=== PATIENT | female | born 1980 | race Caucasian/White ===

== ENCOUNTER 2019-04-07 09:08 | Emergency (ER) | payer BC ==
[2019-04-07 09:20] VITALS: BMI 24.0
--- NOTE | 2019-04-07 09:52 | PDOC ---
Attending Attestation - Resident Resident Name: NoelherminiaPilarMonique - ED Attending Attestation I have performed the following: I have examined & evaluated the patient, The case was reviewed & discussed with the resident, I agree w/resident's findings & plan, Exceptions are as noted - HPI HPI: 39 yo F history ADHD, anxiety, SLE, chronic pain, migraines presents with low back pain. She is 7 . She was seen last night at an outside ER due to cp, found to have 4.1 cm AAA. Currently denies cp, SOB, leg swelling. She states she has had difficulty walking due to her back pain. Denies weakness, numbness. - Physicial Exam PE: GENERAL: Awake, alert, and fully oriented, in no acute distress. Well-appearing , appears uncomfortable. HEAD: No signs of trauma EYES: PERRLA, EOMI, sclera anicteric, conjunctiva clear ENT: Auricles normal inspection, hearing grossly normal, nares patent, oropharynx clear without exudates. Moist mucosa NECK: Normal ROM, supple, no lymphadenopathy, JVD, or masses LUNGS: Breath sounds equal, clear to auscultation bilaterally. No wheezes, and no crackles HEART: Regular rate and rhythm, normal S1 and S2, no murmurs, rubs or gallops ABDOMEN: Soft, nontender, normoactive bowel sounds. No guarding, no rebound. No masses EXTREMITIES: Normal range of motion, no edema. No clubbing or cyanosis. No cords, erythema, or tenderness NEUROLOGICAL: Cranial nerves II through XII grossly intact. Normal speech, normal gait. Motor and sensation intact SKIN: Warm, dry, normal turgor, no rashes or lesions noted. Small puncture wound (healing) overlying the spine, no erythema, no surrounding induration, no point tenderness. - Medical Decision Making Pt with severe low back pain, no known trauma. She had an epidural with her delivery, however, there are no signs of spinal epidural abscess. Pt is well- appearing, but uncomfortable. Will obtain labs, l-spine XR. DC home if she improves with pain meds. i-STOP Reference #: [id number]
--- NOTE | 2019-04-07 10:34 | PDOC ---
History of Present Illness - General Chief Complaint: Chest Pain Stated Complaint: SENT PCP FOR CHEST PAIN Time Seen by Provider: 04/07/19 09:38 Past History - Past Medical History Allergies/Adverse Reactions: Allergies Allergy/AdvReac Type Severity Reaction Status Date / Time No Known Allergies Allergy Verified 04/07/19 09:16 Home Medications: Ambulatory Orders Alprazolam [Xanax] 2 mg PO QID 04/07/19 Bupropion HCl [Wellbutrin -] 75 mg PO DAILY 04/07/19 Cyclobenzaprine HCl [Flexeril -] 5 mg PO TID PRN 04/07/19 Dextroamphetamine/Amphetamine [Adderall Xr 30 mg Capsule] 30 mg PO TID 04/07/19 Hydroxychloroquine So4 [Plaquenil -] 200 mg PO BID 04/07/19 Oxycodone HCl/Acetaminophen [Percocet 5-325 mg Tablet] 0.5 tab PO BID PRN 04/07/19 Oxycodone HCl/Acetaminophen [Percocet 5-325 mg Tablet] 1 tab PO Q6H PRN #12 tablet MDD 4 tabs 04/07/19 Rizatriptan Benzoate [Maxalt] 10 mg PO ASDIR PRN 04/07/19 Tramadol HCl ER 50 mg PO TID PRN 04/07/19 propRANOLol HCL [Inderal -] 10 mg PO DAILY 04/07/19 COPD: No Psychiatric Problems: Yes Other medical history: SLE - Psycho Social/Smoking Cessation Hx Smoking History: Current every day smoker Information on smoking cessation initiated: Yes *Physical Exam - Vital Signs Last Vital Signs Temp Pulse Resp BP Pulse Ox 98.2 F 110 H 18 109/79 99 04/07/19 09:16 04/07/19 09:16 04/07/19 09:16 04/07/19 09:16 04/07/19 09:45 ED Treatment Course - LABORATORY CBC & Chemistry Diagram: 04/07/19 10:49 04/07/19 10:49 Medical Decision Making - Medical Decision Making 04/07/19 13:38 HPI: 39yo F hx SLE, HTN, migraines, chronic pain, "thyroid masses," anxiety, ADHD, 7wks post-, and recent d/c from OSH ([place]; left at 0330) ED last night (with c/o chest pain, CT found 4.1cm AAA) presents from home with low back pain. Hx 2 herniated discs years ago, chronic lower back pain, normally managed on tramadol, percocets, robaxin, and maxalt by [facility] pain management. Trigger point injections, next scheduled for . Worsening lower back pain x4 days, the pain causing her to fall/collapse multiple times. Denies head injury, LOC, syncope. Landlord called cousin Dr Light who instructed her to come here for further eval. Yesterday chest pains, worked up at OSH, resolved on own. Denies saddle anesthesia, urinary/bowel incontinence or retention, recent trauma or falls, fever, chills, fatigue, headache, dizziness, numbness/tingling, weakness, vision changes, shortness of breath, cough, chest pain, palpitations, leg swelling, abdominal pain, blood in stool, diarrhea, constipation, nausea, vomiting, dysuria, hematuria, confusion. Pain - [facility] - [facility] PCP - none ROS: Constitutional: Negative for chills, fever, fatigue, diaphoresis. HENT: Negative for sore throat, rhinorrhea, congestion. Eyes: Negative for visual disturbance. Respiratory: Negative for shortness of breath, cough, and wheezing. Cardiovascular: Negative for chest pain, palpitations, and leg swelling. Gastrointestinal: Negative for abdominal pain, blood in stool, constipation, diarrhea, nausea, and vomiting. Genitourinary: Negative for dysuria, flank pain, and hematuria. Musculoskeletal: Positive for back pain. Negative for myalgias and neck pain. Skin: Negative for rash. Neurological: Negative for light-headedness, dizziness, vertigo, syncope, weakness, numbness and headaches. Psychiatric/Behavioral: Negative for behavioral problems and confusion. PE: Gen: Alert, NAD, comfortable-appearing. HEENT: PERRL, EOMI, MMM, NCAT. No conjunctival pallor. Sclera are non-icteric. Oropharynx is clear. CV: Regular rate and rhythm. No murmurs, rubs, or gallops. PULM: No resp distress. CTAB, no wheezes, rales, or rhonchi. ABD: soft, NT/ND, no rebound tenderness or guarding, no CVA tenderness. BACK: Midline l-spine TTP. No TTP of c/t-spine. No step-offs or deformities. MSK: No bony deformities. 2+ pulses in all extremities. NEURO: AAOx3. PERRL. CN 2-12 intact. 5/5 strength in all extremities. Sensation to light touch intact in all extremities. No pronator drift. No dysmetria. No dysdiadochokinesia. No abnormal nystagmus. Normal gait. EXTREMITIES: No cyanosis. No clubbing. No edema. No calf tenderness. PSYCH: Normal mood and thought pattern. SKIN: Warm and dry. Normal capillary refill. No rashes. No jaundice. Small puncture wound (healing) overlying the spine, no erythema, no surrounding induration, no point tenderness. MDM: 39yo F hx SLE, HTN, migraines, chronic pain, "thyroid masses," anxiety, ADHD, 7wks post-, and recent d/c from OSH ED last night (with c/o chest pain, CT found 4.1cm AAA) presents from home with low back pain. Hemodynamically stable, afebrile, neurologically intact, midline L-spine TTP. Ddx: post-epidural pain, herniated disc, muscle strain/sprain/spasm, MSK, infection, metabolic derangement, anemia, , thyroid pathology. No red flags for spinal epidural abscess, cauda equina/cord compression, or spinal fx. No neurologic deficits. -XR L-spine -CXR -EKG -Labs:CBC,CMP,Coags,Mg,Phos,Cardiac profile,TSH,HCG -Pain management -Dispo: pending w/u Discussed workup at [facility] with Fatou Loaiza on phone, with pt's permission. Discussed plan with Dr Yancey - recommended outpatient f/u at [place] Lumbar Sacral XR reviewed: no acute pathology, dense bladder (likely due to contrast from prior hospital) CXR reviewed: no acute pathology Labs reviewed. No concerning findings. Pt ambulates without difficulty Pain improved. Safe for d/c. D/c w/[place] f/u and percocet rx (pt states ran out) Discharge - Discharge Information Problems reviewed: Yes Clinical Impression/Diagnosis: Lower back pain Condition: Improved Disposition: HOME - Admission No - Additional Discharge Information Prescriptions: Oxycodone HCl/Acetaminophen [Percocet 5-325 mg Tablet] 1 tab PO Q6H PRN #12 tablet MDD 4 tabs PRN Reason: Pain - Follow up/Referral Referrals: [facility] [place] [facility] [place] [Provider Group] - Patient Discharge Instructions Patient Printed Discharge Instructions: DI for Low Back Pain Additional Instructions: You have been seen in the Emergency Department for your back pain. Your X-ray and labs show no signs of fracture or an emergent condition at this time. Take your pain medications as prescribed for pain. We spoke with Dr Yancey and have given you a referral to the [facility] at [place] for further workup and management, per Dr. Yancey's request. Call the clinic tomorrow to set up a follow-up appointment for within 1 week. Return to the Emergency Department immediately if you experience numbness, inability to walk, incontinence, or any other new or concerning symptoms. - Post Discharge Activity
[2019-04-07 11:31] LABS: BASO % 0.4 % (0-2.0); EOS % 3.2 % (0-4.5); HEMOGLOBIN 13.2 GM/dL (10.7-15.3); MCH 29.1 pg (25.7-33.7); MCHC 33.9 g/dl (32.0-36.0); MEAN CELL VOLUME 85.7 fl (80-96); MEAN PLT VOLUME 8.1 fl (7.5-11.1); NEUT % 51.4 % (42.8-82.8); PLATELET COUNT 252 K/MM3 (134-434); RBC 4.55 M/mm3 (3.60-5.2)
[2019-04-07 11:43] LABS: ALBUMIN 3.8 g/dl (3.4-5.0); ALK PHOS 75 U/L (45-117); ANION GAP 8 MMOL/L (8-16); BILIRUBIN,TOTAL 0.4 mg/dL (0.2-1); BLOOD UREA NITROGEN 9.2 mg/dL (7-18); CALCIUM 9.4 mg/dL (8.5-10.1); CHLORIDE 106 mmol/L (98-107); CO2 24 mmol/L (21-32); GLUCOSE,RANDOM 96 mg/dL (74-106); PHOSPHOROUS 3.8 mg/dL (2.5-4.9); SGOT/AST 23 U/L (15-37); SGPT/ALT 51 U/L (13-61); SODIUM 138 mmol/L (136-145); TOT PROT 7.5 g/dl (6.4-8.2)
[2019-04-07 11:50] LABS: INR 1.17 (0.83-1.09); PROTHROMBIN TIME (PATIENT) 13.8 SEC (9.7-13.0)
[2019-04-07 14:02] VITALS: BP 109/74; PULSE 80; TEMP 97.4
--- NOTE | 2019-04-08 09:19 | EKG ---
Test Reason : Blood Pressure : / mmHG Vent. Rate : 092 BPM Atrial Rate : 092 BPM P-R Int : 148 ms QRS Dur : 076 ms QT Int : 370 ms P-R-T Axes : 068 076 038 degrees QTc Int : 457 ms SINUS RHYTHM WITH OCCASIONAL PREMATURE VENTRICULAR COMPLEXES OTHERWISE NORMAL ECG NO PREVIOUS ECGS AVAILABLE Confirmed by Pilo Watson MD ([id number]) on 04/08/2019 9:19:13 AM Referred By: Confirmed By:Pilo Watson MD
== END 2019-04-07 14:07 | disposition home or self-care (01) ==
LOC: JER 09:08
DX: M54.5 Low back pain (principal); M32.9 Systemic lupus erythematosus, unspecified; F99 Mental disorder, not otherwise specified; F17.210 Nicotine dependence, cigarettes, uncomplicated
CPT/HCPCS: 36415; 71045-TC-FY; 72100-TC-FY; 80053; 82550; 82553; 83735; 84100; 84443; 84484; 84702; 85025; 85610; 93005; 93010; 99285-25